=== PATIENT | male | born 1960 | race Caucasian/White ===

== ENCOUNTER 2020-08-12 06:11 | Outpatient (REF) | payer BC, SELFPAY ==
[2020-08-12 07:07] LABS: MANUAL DIFF FLAG NO
[2020-08-12 07:15] LABS: Basophils Percent Auto 0.5 % (0-2); Eosinophils Absolute Auto 0.3 X10*3/uL (0.0-0.4); Eosinophils Percent Auto 4.8 % (0-4); Hematocrit 45.3 % (42-52); Hemoglobin 14.8 g/dl (14.0-18.0); Imm Gran Abs Auto 0.02 X10*3/uL (0.00-0.03); Imm Gran Pct Auto 0.3 % (0.0-0.4); Lymphocytes Absolute Auto 2.4 X10*3/uL (1.2-4.9); Lymphocytes Percent Auto 39.1 % (20-40); Mean Corpuscular HGB Conc 32.7 g/dl (31.0-36.0); Mean Corpuscular Hemoglobin 31.4 pg (27.0-33.0); Mean Corpuscular Volume 96.2 fL (80-98); Mean Platelet Volume 9.5 fL (9.4-12.4); Monocytes Absolute Auto 0.4 X10*3/uL (0.1-1.2); Monocytes Percent Auto 7.1 % (2-11); Neutrophils Percent Auto 48.2 % (45-73); Platelet Count 192 X10*3/uL (160-400); Red Blood Count 4.71 X10*6/uL (4.60-5.80); Red Cell Distribution Width 12.5 % (11.0-16.0); White Blood Count 6.2 X10*3/uL (4.8-10.8)
[2020-08-12 07:35] LABS: Alanine Aminotransferase 12 U/L (0-40); Albumin Level 4.3 g/dL (3.5-5.0); Alkaline Phosphatase 73 U/L (39-117); Anion Gap 15 (12-20); Aspartate Amino Transferase 18 U/L (5-37); Bilirubin Total 0.5 mg/dL (0.0-1.0); Blood Urea Nitrogen 13 mg/dL (9-16); Carbon Dioxide 25 mmol/L (22-29); Chloride 104 mmol/L (96-108); Cholesterol 199 mg/dL; Estimated Glomerular Filt Rate > 60; Glucose Fasting 81 mg/dL (60-99); HDL Cholesterol 57 mg/dL; LDL Cholesterol Calculated 124 mg/dl; Sodium 139 mmol/L (135-145); Total Protein 6.9 g/dL (6.5-8.0); Triglycerides 92 mg/dL
[2020-08-12 08:01] LABS: Glucose Urine UA NEG (NEG); Leukocyte Esterase Urine TRACE (NEG); Nitrite Urine NEG (NEG); Urine Blood NEG (NEG); Urine Ketones NEG (NEG); Urine Protein NEG (NEG-TRACE)
[2020-08-12 08:02] LABS: Prostate Specific Antigen Scr 4.56 ng/mL (<0.05-4.0)
[2020-08-12 08:03] LABS: Appearance Urine CLEAR; Color Urine YELLOW
[2020-08-12 08:23] LABS: Bacteria Urine TRACE /LPF; RBC Urine 0-2 /HPF (0); Squamous Epithelial Cell Urine TRACE /LPF
== END 2020-08-12 06:12 | disposition home or self-care (01) ==
LOC: HO.LAB 06:11
PROVIDERS: Referring Provider Psychiatry & Neurology Psychiatry; Visit Provider Internal Medicine
DX: J45.909 Unspecified asthma, uncomplicated (principal); I10 Essential (primary) hypertension; E78.00 Pure hypercholesterolemia, unspecified
CPT/HCPCS: 36415; 80053; 80061; 81001; 81003; 84153; 85025

== ENCOUNTER 2020-09-04 13:48 | Outpatient (REF) | payer BC, SELFPAY ==
[2020-09-04 14:28] LABS: Glucose Urine UA NEG (NEG); Leukocyte Esterase Urine NEG (NEG); Nitrite Urine NEG (NEG); PH 5.5 (5.0-8.0); Specific Gravity - Urine <= 1.005 (1.005-1.025); Urine Blood NEG (NEG); Urine Ketones NEG (NEG); Urine Protein NEG (NEG-TRACE)
[2020-09-04 14:34] LABS: Appearance Urine CLEAR; Color Urine STRAW
[2020-09-04 15:05] LABS: Prostate Specific Antigen 2.16 ng/mL (<0.05-4.0)
== END 2020-09-04 13:49 | disposition home or self-care (01) ==
LOC: HO.LAB 13:48
PROVIDERS: PCP Internal Medicine; Visit Provider Internal Medicine
DX: R97.20 Elevated prostate specific antigen [PSA] (principal); R82.998 Other abnormal findings in urine; Z12.5 Encounter for screening for malignant neoplasm of prostate
CPT/HCPCS: 36415; 81003; 84153; 87086

== ENCOUNTER 2020-12-04 12:03 | Outpatient (REF) | payer BC, SELFPAY ==
--- NOTE | ~2020-12-04 | XR_ITS ---
EXAMINATION: CR CHEST CLINICAL INFORMATION: Right-sided chest pain. COMPARISON: Chest x-ray and left RIBS dated 08/01/2013. TECHNIQUE: 2 views of the chest were obtained on 3 images. FINDINGS: The cardiomediastinal silhouette is within normal limits in size. Lungs bilaterally are symmetrically well-inflated. There is slight pleural thickening or trace effusions in the posterior CP angles. No focal consolidation or pneumothorax is seen. Mild vertebral spondylosis is seen in the mid and lower thoracic spine. Mild degenerative changes are seen at the acromioclavicular joints bilaterally. XR/XR chest 2V IMPRESSION: Slight pleural thickening versus trace effusions in the posterior CP angles. No other focal findings.
[2020-12-04 13:04] LABS: MANUAL DIFF FLAG NO
[2020-12-04 13:12] LABS: Glucose Urine UA NEG (NEG); Leukocyte Esterase Urine NEG (NEG); Nitrite Urine NEG (NEG); PH 5.5 (5.0-8.0); Urine Blood NEG (NEG); Urine Ketones NEG (NEG); Urine Protein NEG (NEG-TRACE)
[2020-12-04 13:14] LABS: Appearance Urine CLEAR; Color Urine YELLOW
[2020-12-04 13:20] LABS: Basophils Percent Auto 0.3 % (0-2); Eosinophils Absolute Auto 0.2 X10*3/uL (0.0-0.4); Eosinophils Percent Auto 3.6 % (0-4); Hematocrit 39.4 % (42-52); Hemoglobin 13.1 g/dl (14.0-18.0); Imm Gran Abs Auto 0.01 X10*3/uL (0.00-0.03); Imm Gran Pct Auto 0.2 % (0.0-0.4); Lymphocytes Absolute Auto 2.2 X10*3/uL (1.2-4.9); Lymphocytes Percent Auto 37.4 % (20-40); Mean Corpuscular HGB Conc 33.2 g/dl (31.0-36.0); Mean Corpuscular Hemoglobin 31.6 pg (27.0-33.0); Mean Corpuscular Volume 95.2 fL (80-98); Mean Platelet Volume 9.4 fL (9.4-12.4); Monocytes Absolute Auto 0.5 X10*3/uL (0.1-1.2); Monocytes Percent Auto 8.3 % (2-11); Neutrophils Percent Auto 50.2 % (45-73); Platelet Count 177 X10*3/uL (160-400); Red Blood Count 4.14 X10*6/uL (4.60-5.80); Red Cell Distribution Width 12.5 % (11.0-16.0); White Blood Count 5.9 X10*3/uL (4.8-10.8)
[2020-12-04 13:32] LABS: Alanine Aminotransferase 15 U/L (0-40); Albumin Level 4.2 g/dL (3.5-5.0); Alkaline Phosphatase 65 U/L (39-117); Anion Gap 10 (12-20); Aspartate Amino Transferase 18 U/L (5-37); Bilirubin Total 0.3 mg/dL (0.0-1.0); Blood Urea Nitrogen 11 mg/dL (9-16); Calcium 9.1 mg/dL (8.4-10.2); Carbon Dioxide 27 mmol/L (22-29); Chloride 101 mmol/L (96-108); Estimated Glomerular Filt Rate > 60; Glucose Random 74 mg/dL (60-115); Potassium 4.3 mmol/L (3.3-5.1); Sodium 134 mmol/L (135-145); Total Protein 6.3 g/dL (6.5-8.0)
[2020-12-04 13:43] LABS: D Dimer < 200 NG/ML
== END 2020-12-04 12:04 | disposition home or self-care (01) ==
LOC: HO.LAB 12:03
PROVIDERS: PCP Internal Medicine; Visit Provider Internal Medicine
DX: R07.9 Chest pain, unspecified (principal); I10 Essential (primary) hypertension
CPT/HCPCS: 36415; 71046; 80053; 81003; 85025; 85379; 86140

== ENCOUNTER 2020-12-18 14:53 | Outpatient (REF) | payer BC, SELFPAY ==
--- NOTE | ~2020-12-18 | CT_ITS ---
EXAMINATION: CT CHEST WITHOUT CONTRAST CLINICAL INFORMATION: Pleural thickening COMPARISON: Chest x-ray 12/04/2020 TECHNIQUE: Multidetector volumetric CT imaging of the chest was done. Axial MIP volume rendering provided. Sagittal and coronal reformatted images were obtained. This CT examination was performed using dose optimization techniques as appropriate, variously including the following: *Automated exposure control *Adjustment of mA and/or kV according to patient size (this includes techniques or standardized protocols for targeted exams where dose is matched to indication/reason for exam; i.e. extremities or head) *Use of iterative reconstruction technique DLP: 305 mGy-cm FINDINGS: MACHINIST CLASS B: Unremarkable LUNGS: There is 2 mm calcified nodule posterior segment, right upper lobe, axial image 139/5, a 2 mm nodule right lung base CP angle, axial image 537/5. No additional nodules seen. There is no mass, consolidation or ground-glass density. MEDIASTINUM: The thyroid lobes are symmetrical and normal. The central trachea and the bronchi are widely patent. The heart size and the great vessels are normal caliber. The ascending aorta measures 4.1 x 4.1 cm. Small shotty subcarinal lymph nodes are seen. No pericardial effusion noted. PLEURA: There is minimal fatty deposition seen within the right pleural space costophrenic sulcus. No pleural plaque, thickening or effusion seen. AXILLA: No lymphadenopathy. UPPER ABDOMEN: Unremarkable. OSSEOUS STRUCTURES: No lytic or sclerotic process seen. CT/CT chest wo con IMPRESSION: 1. A 2 mm calcified right upper lobe and a noncalcified nodule right lung base. Based on patient risk factors, a follow-up in 1 year can be performed. 2. No pleural thickening, calcified plaque or effusion seen.
== END 2020-12-18 14:54 | disposition home or self-care (01) ==
LOC: HO.CT 14:53
PROVIDERS: Visit Provider Internal Medicine
DX: J92.9 Pleural plaque without asbestos (principal); Z77.090 Contact with and (suspected) exposure to asbestos
CPT/HCPCS: 71250

== ENCOUNTER 2021-01-01 15:05 | Outpatient (REF) | payer BC, SELFPAY ==
--- NOTE | ~2021-01-01 | XR_ITS ---
EXAMINATION: XR LUMBOSACRAL SPINE CLINICAL INFORMATION: Low back pain COMPARISON: None TECHNIQUE: Three views of the lumbosacral spine. FINDINGS: There are 5 nonrib-bearing lumbar-type vertebral bodies. There is no acute visible fracture or dislocation. Mild multilevel degenerative changes with disc space narrowing, osteophyte formation, and lower lumbar spine facet arthropathy. Vertebral body heights and disc spaces are otherwise maintained. Posterior elements are intact. Paraspinal soft tissues are unremarkable. Atherosclerotic calcifications aorta are noted. Visualized bowel gas is unremarkable. XR/XR lumbar spine 2-3V IMPRESSION: 1. No acute visible fracture or dislocation. 2. Mild multilevel degenerative changes.
== END 2021-01-01 15:06 | disposition home or self-care (01) ==
LOC: HO.XRAY 15:05
PROVIDERS: PCP Internal Medicine; Visit Provider Internal Medicine
DX: M54.5 Low back pain (principal)
CPT/HCPCS: 72100

== ENCOUNTER 2021-06-27 10:18 | Emergency (ER) | payer BC, SELFPAY ==
--- NOTE | ~2021-06-27 | CT_ITS ---
CT ANGIOGRAM NECK WITH CONTRAST CT ANGIOGRAM BRAIN WITH CONTRAST CLINICAL INFORMATION: Right-sided headache. Left arm weakness. COMPARISON: Head CT 10/08/2009. TECHNIQUE: Test bolus sequences followed by intravenous administration 70 mL of Omnipaque 350. Helical imaging was performed in the axial plane from the thoracic inlet to the skull vertex. Delayed postcontrast imaging of the head was also performed. The data was processed at the photonics engineering technologist workstation for generation of MIP sequences. Angled MIPs and volume rendered reformatted images were also generated at an offline 3D workstation under concurrent supervision. Stenoses are assessed in accordance with NASCET criteria unless otherwise indicated. This CT examination was performed using dose optimization techniques as appropriate, variously including the following: *Automated exposure control *Adjustment of mA and/or kV according to patient size (this includes techniques or standardized protocols for targeted exams where dose is matched to indication/reason for exam; i.e. extremities or head) *Use of iterative reconstruction technique FINDINGS: BRAIN: Nonspecific multifocal hypoattenuation within the supratentorial periventricular white matter and subcortical white matter for which a MRI of the brain with and without IV contrast would be helpful in further assessment. [There is no intracranial hemorrhage, hydrocephalus, extra-axial surface collection, midline shift, or other herniation pattern. Alfaro to white matter differentiation is diffusely maintained without evidence of an evolved acute territorial infarct. The basilar cisterns are preserved. No significant soft tissue abnormality. No acute osseous abnormality. Moderate pansinus disease. CERVICAL SOFT TISSUES AND LUNG APICES: There is multilevel cervical spondylosis. No significant soft tissue findings within the neck. Imaged upper lungs are clear. CTA: [There is a classic 3 vessel configuration of the aortic arch. Proximal arch vessels are non-stenotic. The vertebral arteries are codominant. Atherosclerotic calcification results in mild narrowing of the left vertebral artery ostium. There is abnormal soft tissue along the periphery of the mid to distal right cervical internal carotid artery with associated moderate luminal narrowing that is most concerning for right ICA arterial dissection. Intraluminal thrombus and/or intramural hematoma extends through the proximal half of the intracranial horizontal petrous segment of the right internal carotid artery where there is a severe true luminal stenosis. There is a small 2 mm pseudoaneurysm projecting laterally from the distal right cervical ICA just proximal to entering the skull base. CT/CT angio head neck IMPRESSION: - There is abnormal soft tissue along the periphery of the mid to distal right cervical internal carotid artery with associated moderate luminal narrowing that is most concerning for right ICA arterial dissection. Intraluminal thrombus and/or intramural hematoma from the dissection extends through the proximal half of the horizontal petrous segment of the intracranial right internal carotid artery where there is a severe true luminal stenosis. There is a small 2 mm pseudoaneurysm projecting laterally from the distal right cervical ICA just proximal to entering the skull base. - Nonspecific multifocal hypoattenuation within the supratentorial periventricular white matter and subcortical white matter for which a MRI of the brain with and without IV contrast would be helpful in further assessment. - There is multilevel cervical spondylosis. - Moderate pansinus disease. Critical findings discussed with Dr. Mckeon at 1:42PM on 06/27/2021.
[2021-06-27 10:33] VITALS: BP 145/99; PULSE 85; RESP 18; TEMP 36.7; O2SAT 96; BMI 24.4
--- NOTE | 2021-06-27 10:59 | ECG_ITS ---
Test Reason : CHEST PAIN Blood Pressure : / mmHG Vent. Rate : 066 BPM Atrial Rate : 066 BPM P-R Int : 154 ms QRS Dur : 094 ms QT Int : 406 ms P-R-T Axes : 048 021 039 degrees QTc Int : 425 ms Normal sinus rhythm Minimal voltage criteria for LVH, may be normal variant ( Sokolow-Reynolds ) Borderline ECG When compared with ECG of 18-SEP-2010 09:46, No significant change was found Referred By: Dustin Mckeon Electronically Signed By:ARMEN AVALOS
--- NOTE | 2021-06-27 11:01 | ED.NEUROSD ---
HPI - Neuro Symptoms/Deficit General Chief Complaint: Neuro Symptoms/Deficit Stated Complaint: while running dizzy rt head pain left side numbnes Time Seen by Provider: 06/27/21 10:59 Source: patient Mode of arrival: ambulatory Limitations: no limitations History of Present Illness HPI Narrative: This is 60 years old male presented to the emergency department with chief complaint of right-sided headache a transient weakness on the left hand after a run. He usually runs form eyes twice a week today at the end of the ran his parents right-sided headache dizziness and left hand weakness he comes ambulatory to the emergency department Onset (ago): hour(s) (1) Location: other (rt hand weakness) Severity: mild Quality: weak Relieving factors: none Context: gradual onset Associated symptoms: denies other symptoms Related Data Home Medications Medication Instructions Recorded Confirmed albuterol sulfate 90 mcg/actuation 0 mcg INHALATION 06/23/21 aerosol inhaler amlodipine 5 mg tablet 5 mg PO DAILY 06/23/21 fluoxetine 40 mg capsule 40 mg PO DAILY 06/23/21 lamotrigine 150 mg tablet 150 mg PO DAILY 06/23/21 quetiapine 25 mg tablet mg PO 06/23/21 Previous Rx's Medication Instructions Recorded chlorpheniramine 2 mg-DM 10 1 tab PO Q4H PRN 14 Days #60 tab 06/23/21 mg-acetaminophen 325 mg tablet (Coricidin HBP Flu) Allergies Allergy/AdvReac Type Severity Reaction Status Date / Time No Known Allergies Allergy Unverified 06/23/21 12:05 [No Known Allergies*] Review of Systems Review of Systems: Yes all other systems are reviewed and are negative Constitutional: Constitutional: Reports no additional constitutional complaints ENT: Reports system reviewed and no additional complaints, except as documented and Denies dysphagia Cardiovascular: Cardiovascular: Reports no additional cardiovascular complaints Respiratory: Respiratory: Denies cough and Denies hemoptysis Gastrointestinal: Gastrointestinal: Denies constipation and Denies dysphagia Psychiatric: Psychiatric: Reports no additional psychiatric complaints PMFSH Past Medical History Medical History HTN (hypertension) Social History Social History Alcohol intake: never Patient Tobacco Use Status: Never used Tobacco Use of substances other than those prescribed or required for medical reasons: No Advance Directives: No Advance Directives Information Provided: Yes Physical Exam Vital Signs: Vital Signs: Last Vital Signs Temp 97.9 F 06/27/21 13:46 Pulse 64 06/27/21 14:26 Resp 14 06/27/21 14:26 BP 177/104 H 06/27/21 14:26 Pulse Ox 96 06/27/21 14:26 BMI result Body Mass Index 24.4 Const: Other: He looks well is no toxic-appearing General: healthy appearing HENMT: Head: Yes normal to inspection Ears: hearing grossly normal bilaterally Face and sinus: Yes normal facial exam Mouth: Normal oral and palatal mucosa present Throat: Yes posterior oropharynx normal Neck: Neck: Yes normal visual inspection and Yes full ROM Chest: Chest palpation & inspection: normal inspection of the chest Resp: Effort & Inspection: normal respiratory effort Auscultation: clear to auscultation bilaterally Cardio: Jugular venous distension: no JVD Rate: regular rate GI: Inspection: Yes normal to inspection Palpation (GI): Soft to palpation, not firm and nontender Skin: General skin exam: no rashes or lesions noted Neuro: Other: Patient is awake alert oriented x3 gait is normal, cranial nerve normal 2-12 strenght is 5/5 upper lower extremity cerebellum tests are normal including [id number], this time is stroke scale is 0 Course Course Course Narrative: I spoke with neurologist at [facility] Dr carmona he reccomend to speak to neuro at [facility]. I spoke with [facility] neurologist Dr Shrestha she suggested plavix 300 and 650 mg aspirin,she also requested trasfer to [facility] ED ? stent by neuroradiologist. I spoke with ED at [facility] he was accepted by Dr Bowman in ED Reevaluation(s) Reevaluation #1: remain neurologically intact,BEDOLLA better after IV morphin,waiting for ambulance to transfer MDM - Neuro Symptoms/Deficit Lab Data Result diagrams: 06/27/21 11:14 06/27/21 11:14 Labs: Lab Results 06/27/21 06/27/21 06/27/21 Range/Units 11:14 11:14 11:14 WBC 5.0 (4.8-10.8) X10*3/uL RBC 4.42 L (4.60-5.80) X10*6/uL Hgb 14.0 (14.0-18.0) g/dl Hct 41.6 L (42.0-52.0) % MCV 94.1 (80.0-98.0) fL MCH 31.7 (27.0-33.0) pg MCHC 33.7 (31.0-36.0) g/dl RDW 12.2 (11.0-16.0) % Plt Count 157 L (160-400) X10*3/uL MPV 9.1 L (9.4-12.4) fL Immature Gran % (Auto) 0.4 (0.0-0.4) % Neut % (Auto) 54.3 (45-73) % Lymph % (Auto) 32.5 (20-40) % [place] % (Auto) 7.4 (2-11) % Eos % (Auto) 4.8 H (0-4) % Baso % (Auto) 0.6 (0-2) % Lymph # (Auto) 1.6 (1.2-4.9) X10*3/uL [place] # (Auto) 0.4 (0.1-1.2) X10*3/uL Eos # (Auto) 0.2 (0.0-0.4) X10*3/uL Baso # (Auto) 0.0 (0.0-0.2) X10*3/uL Abs Immat Gran (auto) 0.02 (0.00-0.03) X10*3/uL Absolute Neuts (auto) 2.7 (2.0-8.3) x10*3/uL Absolute Nucleated RBC 0.000 (0.0-0.012) X10*3/uL Nucleated RBC % (auto) 0.0 (0.0-0.2) /100WBC Sodium 137 (135-145) mmol/L Potassium 5.4 H D (3.3-5.1) mmol/L Chloride 103 (96-108) mmol/L Carbon Dioxide 28 (22-29) mmol/L Anion Gap 11 L (12-20) BUN 14 (9-16) mg/dL Creatinine 0.85 (0.5-1.4) mg/dL Estim Creat Clear Calc 98.9 Estimated GFR > 60 Random Glucose 91 (60-115) mg/dL Calcium 9.2 (8.4-10.2) mg/dL Total Bilirubin 0.4 (0.0-1.0) mg/dL AST 23 (5-37) U/L ALT 14 (0-40) U/L Alkaline Phosphatase 80 D (39-117) U/L Troponin I High Sens < 3.5 (<3.5-35.0) ng/L Total Protein 6.5 (6.5-8.0) g/dL Albumin 4.1 (3.5-5.0) g/dL COVID-19 (JCARLOS) (Negative) COVID-19 Clin Com 06/27/21 Range/Units 14:43 WBC (4.8-10.8) X10*3/uL RBC (4.60-5.80) X10*6/uL Hgb (14.0-18.0) g/dl Hct (42.0-52.0) % MCV (80.0-98.0) fL MCH (27.0-33.0) pg MCHC (31.0-36.0) g/dl RDW (11.0-16.0) % Plt Count (160-400) X10*3/uL MPV (9.4-12.4) fL Immature Gran % (Auto) (0.0-0.4) % Neut % (Auto) (45-73) % Lymph % (Auto) (20-40) % [place] % (Auto) (2-11) % Eos % (Auto) (0-4) % Baso % (Auto) (0-2) % Lymph # (Auto) (1.2-4.9) X10*3/uL [place] # (Auto) (0.1-1.2) X10*3/uL Eos # (Auto) (0.0-0.4) X10*3/uL Baso # (Auto) (0.0-0.2) X10*3/uL Abs Immat Gran (auto) (0.00-0.03) X10*3/uL Absolute Neuts (auto) (2.0-8.3) x10*3/uL Absolute Nucleated RBC (0.0-0.012) X10*3/uL Nucleated RBC % (auto) (0.0-0.2) /100WBC Sodium (135-145) mmol/L Potassium (3.3-5.1) mmol/L Chloride (96-108) mmol/L Carbon Dioxide (22-29) mmol/L Anion Gap (12-20) BUN (9-16) mg/dL Creatinine (0.5-1.4) mg/dL Estim Creat Clear Calc Estimated GFR Random Glucose (60-115) mg/dL Calcium (8.4-10.2) mg/dL Total Bilirubin (0.0-1.0) mg/dL AST (5-37) U/L ALT (0-40) U/L Alkaline Phosphatase (39-117) U/L Troponin I High Sens (<3.5-35.0) ng/L Total Protein (6.5-8.0) g/dL Albumin (3.5-5.0) g/dL COVID-19 (JCARLOS) Negative (Negative) COVID-19 Clin Com See Note Imaging Data CT scan - head: Radiologist's impression: s and/or intramural hematoma extends through the proximal half of the intracranial horizontal petrous segment of the right internal carotid artery where there is a severe true luminal stenosis. There is a small 2 mm pseudoaneurysm projecting laterally from the distal right cervical ICA just proximal to entering the skull base. CT/CT angio head neck IMPRESSION: - There is abnormal soft tissue along the periphery of the mid to distal right cervical internal carotid artery with associated moderate luminal narrowing that is most concerning for right ICA arterial dissection. Intraluminal thrombus and/or intramural hematoma from the dissection extends through the proximal half of the horizontal petrous segment of the intracranial right internal carotid artery where there is a severe true luminal stenosis. There is a small 2 mm pseudoaneurysm projecting laterally from the distal right cervical ICA just proximal to entering the skull base. ? - Nonspecific multifocal hypoattenuation within the supratentorial periventricular white matter and subcortical white matter for which a MRI of the brain with and without IV contrast would be helpful in further assessment. ? - There is multilevel cervical spondylosis. ? - Moderate pansinus disease. ? Critical findings discussed with Dr. Mckeon at 1:42PM on 06/27/2021. ECG Data Attestation: I personally reviewed and interpreted this ECG as follows: ECG interpretation date: 06/27/21 ECG interpretation time: 11:50 Pacemaker model: nsr 66 no ischemic changes Critical Care Time Critical Care Time Critical Care Time: Yes Total Critical Care Time: 60 Attestation: taking care of pt,speaking with ,neurologists,arranging transfer Discharge Plan Discharge Clinical Impression: Carotid artery dissection Patient Disposition: [facility] Transfer Details: [facility] Prescriptions: No Action albuterol sulfate 90 mcg/actuation HFA aerosol inhaler 0 mcg inhalation RF: 0 amlodipine 5 mg tablet 5 mg PO DAILY RF: 0 quetiapine 25 mg tablet PO RF: 0 lamotrigine 150 mg tablet 150 mg PO DAILY RF: 0 fluoxetine 40 mg capsule 40 mg PO DAILY RF: 0 Coricidin HBP Flu 2-10-325 mg tablet 1 tab PO Q4H PRN (Reason: cold symptoms) 14 Days Qty: 60 RF: 2
[2021-06-27 11:21] LABS: MANUAL DIFF FLAG NO
[2021-06-27 11:23] LABS: Basophils Percent Auto 0.6 % (0-2); Eosinophils Absolute Auto 0.2 X10*3/uL (0.0-0.4); Eosinophils Percent Auto 4.8 % (0-4); Hematocrit 41.6 % (42.0-52.0); Imm Gran Abs Auto 0.02 X10*3/uL (0.00-0.03); Imm Gran Pct Auto 0.4 % (0.0-0.4); Lymphocytes Absolute Auto 1.6 X10*3/uL (1.2-4.9); Lymphocytes Percent Auto 32.5 % (20-40); Mean Corpuscular HGB Conc 33.7 g/dl (31.0-36.0); Mean Corpuscular Hemoglobin 31.7 pg (27.0-33.0); Mean Corpuscular Volume 94.1 fL (80.0-98.0); Mean Platelet Volume 9.1 fL (9.4-12.4); Monocytes Absolute Auto 0.4 X10*3/uL (0.1-1.2); Monocytes Percent Auto 7.4 % (2-11); Neutrophils Absolute Auto 2.7 x10*3/uL (2.0-8.3); Neutrophils Percent Auto 54.3 % (45-73); Platelet Count 157 X10*3/uL (160-400); Red Blood Count 4.42 X10*6/uL (4.60-5.80); Red Cell Distribution Width 12.2 % (11.0-16.0)
--- NOTE | 2021-06-27 11:25 | PC.NURSE ---
iv inserted, labs drawn, ekg performed, vss, pt neuro intact pt denies weakness, smile symmetrical, no c/o pain or discomfort, call castro within reach, family at bedside, will continue to monitor.
[2021-06-27 12:06] LABS: Troponin-I High Sensitivity < 3.5 ng/L (<3.5-35.0)
[2021-06-27 12:17] LABS: Alanine Aminotransferase 14 U/L (0-40); Albumin Level 4.1 g/dL (3.5-5.0); Alkaline Phosphatase 80 U/L (39-117); Anion Gap 11 (12-20); Aspartate Amino Transferase 23 U/L (5-37); Bilirubin Total 0.4 mg/dL (0.0-1.0); Blood Urea Nitrogen 14 mg/dL (9-16); Calcium 9.2 mg/dL (8.4-10.2); Carbon Dioxide 28 mmol/L (22-29); Chloride 103 mmol/L (96-108); Creatinine Clr Calc Pharmacy 98.9; Estimated Glomerular Filt Rate > 60; Glucose Random 91 mg/dL (60-115); Potassium 5.4 mmol/L (3.3-5.1); Sodium 137 mmol/L (135-145); Total Protein 6.5 g/dL (6.5-8.0)
[2021-06-27] MEDS: iohexoL 350 MG/ML 100 ML INFUS..BTL IV (12:57)
[2021-06-27 13:46] VITALS: BP 181/105; PULSE 60; RESP 18; TEMP 36.6; O2SAT 96
[2021-06-27 13:52] VITALS: RESP 18
[2021-06-27] MEDS: ondansetron HCL 4 MG/2 ML VIAL IVPUSH (13:52)
[2021-06-27] MEDS: Morphine Sulfate 4 MG/ML CARTRIDGE IVPUSH (13:52)
--- NOTE | 2021-06-27 14:00 | PC.NURSE ---
@ 1400 CALL RECEIVED FROM [facility] OF [facility] PT TX LINE ASKING TO SPEAK WITH DR ANGEL ORTIZ TAKES OVER CALL RIGHT AWAY
--- NOTE | 2021-06-27 14:03 | PC.NURSE ---
patient medicated for pain per order
[2021-06-27 14:26] VITALS: BP 177/104; PULSE 64; RESP 14; O2SAT 96
[2021-06-27] MEDS: Aspirin Enteric Coated 325 MG TABLET.DR PO ×2 (14:27→14:41)
[2021-06-27] MEDS: Clopidogrel Bisulfate 300 MG TABLET PO (14:41)
--- NOTE | 2021-06-27 14:57 | PC.NURSE ---
patient a&ox3, family at bedside, pt remains hypertensive, court recording monitor sinus carlos alberto, pt medicated per order
--- NOTE | 2021-06-27 14:58 | PC.NURSE ---
report called to [facility] at [facility] ed, pt ready for transport upon ems arrival
[2021-06-27 15:11] LABS: COVID-19 Test Negative (Negative)
== END 2021-06-27 15:48 | disposition short-term general hospital (02) ==
PROVIDERS: Emergency Provider Emergency Medicine
DX: I77.71 Dissection of carotid artery (principal); Z20.822 Contact with and (suspected) exposure to COVID-19; R53.1 Weakness; I10 Essential (primary) hypertension
CPT/HCPCS: 36415; 70496; 70498; 80053; 84484; 85025; 87635; 93005; 96374; 96375; 99285; 99291; J2270; J2405; Q9967